=== PATIENT | male | born 1970 | race Two or more races ===

== ENCOUNTER 2018-11-09 09:32 | Emergency (ER) | payer OTHER ==
[~2018-11-09] VITALS: Ht 175.3 cm; Wt 122.5 kg
[2018-11-09] MEDS ORDERED: COZAAR25 MG (10:39)
== END 2018-11-09 10:52 | disposition home or self-care (01) ==
LOC: ER 09:32
DX: N49.2 Inflammatory disorders of scrotum (principal)

== ENCOUNTER 2023-08-02 07:55 | Outpatient (CLI) | payer OTHER ==
[~2023-08-02 07:55] MED LIST: COZAAR25 MG
== END 2023-08-02 08:08 | disposition home or self-care (01) ==
LOC: TOM 07:55
PROVIDERS: ATTEND Specialist
DX: K40.91 Unilateral inguinal hernia, without obstruction or gangrene, recurrent (principal)